=== PATIENT | male | born 1990 | race Caucasian/White ===

== ENCOUNTER 2020-09-11 13:21 | Outpatient (CLI) | payer OTHER, SELFPAY ==
--- NOTE | 2020-09-11 13:34 | XR_ITS ---
WS: [id number] Right wrist, 3 views, 09/11/2020 Clinical Data: M25.539 - Pain in unspecified wrist Comparison: None. Findings: No fractures or dislocations are seen. The carpal bones are intact. There is no soft tissue swelling. The distal radius and ulna are not remarkable. XR/XR wrist RT min 3V* [id number] Impression: Negative right wrist.
== END 2020-09-11 13:22 | disposition home or self-care (01) ==
LOC: RAD 13:32
PROVIDERS: PCP Nurse Practitioner Family; Visit Provider Registered Nurse
DX: M25.531 Pain in right wrist (principal)
CPT/HCPCS: 73110

== ENCOUNTER → 2022-03-12 08:44 | Outpatient (BNVA) | payer OTHER, SELFPAY | PROVIDERS: PCP Nurse Practitioner Family; Visit Provider Registered Nurse | DX: R53.83 Other fatigue (principal); K42.9 Umbilical hernia without obstruction or gangrene; L91.8 Other hypertrophic disorders of the skin | CPT/HCPCS: 80053; 82306; 82607; 84439; 84443; 84481; 85025 ==

== ENCOUNTER → 2022-04-16 14:21 | Outpatient (BNVA) | payer OTHER, SELFPAY | PROVIDERS: PCP Registered Nurse; Visit Provider Registered Nurse | DX: R68.89 Other general symptoms and signs (principal) | CPT/HCPCS: 87400 ==

== ENCOUNTER 2022-04-27 11:31 | Day surgery (SDC) | payer OTHER, SELFPAY ==
[2022-04-13 12:20] VITALS: BMI 30.7
[2022-04-27] VITALS (11 sets, daily range): BP systolic 95–135; BP diastolic 5–83; PULSE 44–68; RESP 16–20; TEMP 36.4–36.8; O2SAT 92–99
--- NOTE | 2022-04-27 12:19 | ANES.PREANE2 ---
Pre-Anesthetic Assessment Height/Weight: Height 1.75 m Weight 94.347 kg Temp Pulse Resp BP Pulse Ox O2 Del Method 98.2 F 49 L 16 135/83 98 04/27/22 12:00 04/27/22 12:00 04/27/22 12:00 04/27/22 12:00 04/27/22 12:00 04/27/22 12:03 Preop Diagnosis: Umbilical hernia Operation Date: 04/27/22 12:55 Proposed Procedures p open umbilical hernia repair with mesh 01356 K42.9(Not Applicable) - Vu Alves MD Familial anesthetic complications: None Was Beta Fariba taken within 24 hours: N/A Was Clonidine taken within 24 hours: N/A Last intake: Intake Last Liquid Date 04/26/22 Last Liquid Time 19:00 Last Solid Date 04/26/22 Last Solid Time 19:00 Social No alcohol and No tobacco Exam alert, oriented x 3, clear to auscultation bilaterally and regular rate & rhythm Airway Mallampati: Class II Dentition: full History/ROS No significant history except as noted Anesthetic Plan ASA status: 2 Anesthesia: General Risk of > 500 ml blood loss (7ml/kg in children): No Medications/Allergies Home Medications Medication Instructions Recorded Confirmed Last Taken Type No Known Home Medications 04/06/22 04/16/22 Unknown History Allergies Allergy/AdvReac Type Severity Reaction Status Date / Time No Known Allergies Allergy Verified 04/16/22 14:12 [facility] Anesthesia Family History (Updated 04/16/22 @ 14:13 by Inez Morrow LPN) Other No pertinent family history Social History Smoking and tobacco status: never smoked Alcohol intake: never Adopted: No Caregiver/support person: No Lives independently: No Household members: spouse service: No Current occupational status: employed History of recent travel: No Sexually active: Yes Current gender identity: Male Data Anesthesia Cardiac Studies: No Data to Display
[2022-04-27] MEDS: heparin 5,000 unit/mL INJ 1 mL 2000 UNIT SUBCUT (12:50)
[2022-04-27] MEDS: sodium chloride 0.9% 1,000 ML 30 ML IV (13:03)
[2022-04-27] MEDS: acetaminophen 1,000 MG/100 ML PIGGYBACK 400 MG IV (13:04)
[2022-04-27] MEDS: diphenhydrAMINE 50 mg/mL SDV 1mL 12.5 MG IVP (13:04)
--- NOTE | 2022-04-27 13:27 | W.PM.OPSUD ---
Surgery/Procedure H&P Update DATE OF PROCEDURE: April 27, 2022 DATE H&P PERFORMED: 04/06/22 H&P UPDATE INFORMATION: I have reviewed H&P completed within last 30 days, I have examined patient prior to procedure and No changes to prior documentation PREOP DIAGNOSIS: Umbilical hernia PRIMARY INDICATION FOR PROCEDURE: The same PLANNED PROCEDURE: Operation Date: 04/27/22 12:55 Proposed Procedures p open umbilical hernia repair with mesh 28963 K42.9(Not Applicable) - Vu Alves MD
[2022-04-27] MEDS: ceFAZolin 2,000 MG in sodium chloride 0.9% (plus) 50 ML 100 MG IV (13:33)
[2022-04-27] MEDS: lidocaine 1% INJ 20 mL INJECTION (13:53)
--- NOTE | 2022-04-27 14:18 | P.OP_ITS ---
Operative Report Date of procedure: April 27, 2022 Pre-op diagnosis: Preop Diagnosis Umbilical hernia Post-op diagnosis: The same Procedure done: Open umbilical hernia repair primarily without mesh placement Specimens removed/disposition: Hernia sac and contents Surgeon: Vu Alves MD Layboy Operator: Surgical ashkan Flor nurse Abigail Anesthesia: General (chainstitch sewing machine operator Isreal Barrett) Estimated blood loss (mL): 5 Procedure: Patient was identified in holding area and the site of the hernia was marked by me ,Patient was brought then to the operating room, general endotracheal anesthesia was administered by the anesthesia provider.prophylactic IV antibiotics were given per protocol Timeout was done verifying the patient's name/date of /planned procedure and destination after the procedure, all were in agreement. SCDs confirmed to be functioning, preoperative antibiotics administered per protocol, and beta rachel protocol was confirmed. Prep and drape of the abdomen was done under the usual sterile technique. I started by infraumbilical skin incision,and dissection was carried till the hernia sac was identified and opened,following that trimming of the edges and excising the sac,were sac and omental contents were sent for pathology after transfixing the omentum using 2-0 silk suture the excess tissues were removed and sent for pathology. At that point the fascial defect is about half an inch in diameter, after freeing all the adhesions and freeing the overlying fat on top of the fascia,to facilitate primary closure, under direct visualization I was able to use #1 PDS to close the defect primarily, as an interrupted figure of 8 sutures,copious and through irrigation of the wound was then achieved and hemostasis. Following that a 2/0 Vicryl running,continiuos deep subdermal stitch was placed,followed by 3-0 Vicryl,then 4-0 Monocryl was used for subcuticular closure of the skin incision. Local lidocaine was used for local infiltration.Surical glue was then applied.Followed by appropraie size Abdominal Binder. Counts of sponges,needles and instruments were completed at the end of the procedure and specimen was verified. Patient tolerated the procedure well and was taken to the recovery area in stable condition after Extubation I was present for the whole entire procedure.
--- NOTE | 2022-04-27 14:38 | SUR.PHASEI ---
1430 PT TO PACU 5 PT SLEEPS BUT AWAKES TO TOUCH, THEN QUICKLY BACK TO SLEEP WITH GOOD RESP EFFORT NOTED MONITOR SB WITH NO ECTOPY NOTED IV TO RT HAND #20 WITH 400 ML NS UP AT KVO RATE, ID BRACELET TO LT WRIST, PT ID'D WITH 2 IDENTIFIERS ABDOMEN SOFT WITH UMBILICAL SITE WITH SKIN GLUE AND ABDOMENAL BINDER IN PLACE SITE D/I BILAT SCDS ON PT.
[2022-04-27] MEDS: fentaNYL 50 mcg/mL INJ 2mL IVP (14:45)
--- NOTE | 2022-04-27 14:53 | SUR.PHASEI ---
1450 PT SATS DOWN TO 90% AFTER PAIN MED, PT PLACED ON 2LNC TO KEEP SATS OVER 945 VSS. PT AWAKES TO VOICE EASILY, PT ORIENTED X 3 V
--- NOTE | 2022-04-27 15:26 | ANE.PACU2 ---
Inpatient post-anesthesia follow up: Airway intact: Yes Vital signs: Temperature 97.8 F Pulse Rate 44 Respiratory Rate 16 Blood Pressure 95/51 Pulse Oximetry 97 Oxygen Delivery Me thod Room Air Oxygen Flow Rate 3 Fraction of Inspir ed Oxygen Hydration adequate: Yes Nausea and vomiting: No Pain level: 1 Mental status: Baseline
[2022-04-27] MEDS: HYDROcodone-acetaminophen 5-325 mg Tablet 1 TAB PO (16:23)
--- NOTE | 2022-04-27 17:34 | SUR.PHASEII ---
17:10 PT ATTEMPTED TO SIT UP. BECAME PALE AND WEAK. 250ml SALINE BOLUS GIVEN.MODERATE RELIEF OF ABDOMEN PAIN.DENIES NAUSEA.
== END 2022-04-27 17:40 | disposition home or self-care (01) ==
PROVIDERS: PCP Registered Nurse; Visit Provider Surgery
PROC: (CPT 49585; principal; 2022-04-27 12:45)
DX: K42.9 Umbilical hernia without obstruction or gangrene (principal)
CPT/HCPCS: 49585; 88302; J0131; J0690; J1100; J1200; J1644; J2405; J2704; J2710; J3010; J3490; J7030